=== PATIENT | male | born 1985 | race Hispanic/Latino ===

== ENCOUNTER 2021-03-03 13:01 | Emergency (ER) | payer SELFPAY ==
[~2021-03-03] VITALS: Ht 177.8 cm; Wt 99.8 kg
[2021-03-03 13:02] VITALS: BP 162/106
[2021-03-03] MEDS ORDERED: LIDOCAINE 1%-EPI 1:100,000 20 ML VIAL IJ SCH (13:30)
[2021-03-03] MEDS ORDERED: TETANUS/DIPHTHERIA TOXOID [ADULT] 0.5 ML VIAL IM ONE (13:30)
[2021-03-03] MEDS ORDERED: LIDOCAINE HCL 1% 20 ML VIAL ONE (13:41)
== END 2021-03-03 14:37 | disposition home or self-care (01) ==
LOC: EDH 13:01
DX: S61.011A Laceration without foreign body of right thumb without damage to nail, initial encounter (principal); Z90.79 Acquired absence of other genital organ(s); Z98.890 Other specified postprocedural states; W27.0XXA Contact with workbench tool, initial encounter; Y93.89 Activity, other specified; Y92.89 Other specified places as the place of occurrence of the external cause; Y99.8 Other external cause status
CPT/HCPCS: 12002; 90714; 99282